=== PATIENT | female | born 1980 | race Caucasian/White ===

== ENCOUNTER → 2021-08-19 07:57 | Outpatient (CLI) | payer OTHER, SELFPAY ==
[2021-08-19 09:31] LABS: COVID19 -Nasal RAPID Negative (Negative)
== END ==
PROVIDERS: PCP Family Medicine; Referring Provider Specialist; Visit Provider Specialist
DX: Z01.812 Encounter for preprocedural laboratory examination (principal); Z20.822 Contact with and (suspected) exposure to COVID-19
CPT/HCPCS: 87635

== ENCOUNTER 2021-08-19 08:06 | Day surgery (SDC) | payer OTHER, SELFPAY ==
[2021-08-14 15:23] VITALS: BMI 31.1
[2021-08-19] VITALS (16 sets, daily range): BP systolic 89–122; BP diastolic 56–84; PULSE 95–116; RESP 12–16; TEMP 36.2–36.8; O2SAT 96–100; BMI 31.1
--- NOTE | 2021-08-19 | PATH_ITS ---
[facility] Accession Number: [id number] . 01 Material submitted: . uterus - BILATERAL FALLOPIAN TUBES, LEFT OVARY, UTERUS, AND CERVIX . 02 Diagnosis: A. Uterus, Cervix, Bilateral Fallopian Tubes and Left Ovary, Hysterectomy, Bilateral Salpingectomy, and Left Oophorectomy: Myometrium with leiomyomas (up to 5 cm). Late secretory phase endometrium. Cervix with parakeratosis, consistent with prolapse-type changes and benign nabothian cysts. Bilateral fallopian tubes with focal hydrosalpinx. Left ovary with numerous benign physiologic cysts. Negative for ovarian borderline tumors, dysplasia or malignancy. MRV 08/25/2021 1732 Local . 02 Electronically signed: . Gris Oro MD, Pathologist NPI- [id number] . 01 Gross description: . The specimen is received in formalin, labeled uterus, cervix, bilateral tubes and left ovary and consists of a 325-gram morcellated uterus, cervix, bilateral fallopian tubes and ovary measuring 16.0 x 15.0 x 5.0 cm in aggregate. The serosa is reyes-pink and smooth. The reyes-pink wrinkled, focally hemorrhagic ectocervix measures 4.2 x 3.8 cm and there is a 0.6 x 0.2 cm os. Sectioning reveals a red-brown endometrium measuring 0.1 cm in thickness. The myometrium is reyes-pink and trabeculated with multiple reyes-white whorled leiomyomata and leiomyomata fragments ranging from 1.0-5.0 cm with no areas of hemorrhage, necrosis or cystic degeneration. Also received are two detached fallopian tubes measuring 5.0 cm in length by 1.2 cm in diameter and 6.5 cm in length by 0.9 cm in diameter. The serosa is pink-purple and smooth, and there are multiple paratubal cysts ranging from 0.1-0.3 cm. Sectioning reveals a reyes-pink mucosa and a stellate lumen measuring 0.4 cm in diameter. Additionally received is a detached ovary weighing 13 grams and measuring 4.5 x 2.8 x 1.5 cm. The external surface is reyes and smooth to cerebriform with fibrinous adhesions. The ovary is inked blue and sectioned to reveal multiple smooth walled serous-filled cysts ranging from 0.2-1.0 cm. No papillary excrescences are identified. . A1-A2: Cervix. A3-A4: Lime Supervisor uterus. A5-A7: Lime Supervisor leiomyomata. A8-A9: Fallopian tubes, it sales representative cross sections and bisected fimbria. A10-A12: Lime Supervisor ovary. (EA:[id number]) A13-A14: Lime Supervisor endometrium additional /MRV 08/25/2021 1732 Local . 02 Pathologist provided ICD-10: N94.10, D25.9, N81.4 . 02 CPT . 315899 Performed at: [facility] [address] [id number] MD Ronal Block MD Phone: [phone] Performed at: 02 [facility] [address] [place] [id number] MD Felicita Bolaños MD Phone: [phone]
--- NOTE | 2021-08-19 09:12 | PM.PREOP ---
Pre-operative Note COVID-19 COVID-19 status: Result pending Result date/Date tested (Pos, Neg/Pending): 08/19/21 Interval Note History & Physical reviewed/Exam performed by Physician: Yes Changes to H&P: No
[2021-08-19] MEDS: SODIUM CHLORIDE 0.9% 1,000 ML 84 ML IV (09:29)
[2021-08-19] MEDS: CLINDAMYCIN 900 MG/50 ML PIGGYBACK 50 MG IV (10:05)
[2021-08-19] MEDS: ACETAMINOPHEN IV 1,000 MG/100 ML VIAL 400 MG IV (10:30)
--- NOTE | 2021-08-19 10:39 | SUR.OPER ---
Lithotomy on padded OR bed. [place] Pad Positioner under torso. Head on pillow, arms padded and tucked at sides. Legs secured in padded yellow fins stirrups.
[2021-08-19] MEDS: EPINEPHrine 1 MG/ML 0.15 MG INJ (10:44)
[2021-08-19] MEDS: BUPIVACAINE 0.5% (PF) VIAL 30 ML INJ (10:50)
[2021-08-19] MEDS: LACTATED RINGERS 1,000 ML 100 ML IV ×2 (11:17→15:26)
--- NOTE | 2021-08-19 13:10 | PM.OP.1 ---
Operative Date/Time/Diagnoses Date of procedure: 08/19/21 Time of procedure: 13:10 Pre-op diagnosis: Menorrhagia and symptomatic cystocele with partial uterovaginal prolapse Post-op diagnosis: other (Adhesion of the left ovary to the uterus requiring removal) Procedure & Clinicians Procedure: Laparoscopic-assisted vaginal hysterectomy, left salpingo oophorectomy, right salpingectomy, with anterior repair Same procedure as scheduled: Yes Indications: Menorrhagia with symptomatic cystocele and partial uterovaginal prolapse Surgeon: Odalis Espinal Maintenance And Repair Worker: Felisa Pringle Click Yes if Unassisted: No Anesthesia Type: General Operative Notes Findings: Large fibroid uterus, adhesion of the left ovary to the uterus, normal right ovary, normal fallopian tubes, no obvious internal hernias or endometriosis. Cystocele with uterine prolapse to the hymen. Closure Type: primary Specimen(s): other (Uterus, left ovary, bilateral fallopian tubes) Applied: catheter (Fuentes) and other (Vaginal packing) Estimated Blood Loss (mL): 400 Blood products transfused: none Procedure in detail: Patient was brought to the operating room where she underwent general anesthesia. She was placed in [facility]. A check system was reviewed with the staff in the room. 900 mg of IV clindamycin was in prior to beginning case. Warming was in place. Pulsatile stockings were in place and functional. She was prepped and draped in the usual sterile fashion. A single-tooth tenaculum was placed on the anterior lip of the cervix. The cervix was dilated to #6 Hegar dilator to allow the uterine manipulator to be placed through the cervix into the uterus with the balloon inflated with 3 mL of air. A Fuentes catheter was placed. Area of a prior umbilical incision was injected with lidocaine. An incision was made with the scalpel. The varies needle was placed in the abdomen. Correct placement was noted by withdrawing on the syringe and the having a drop of water fall easily through the syringe into the abdomen. The abdomen was insufflated with CO2. 5 mm trochars were placed in the right and left lower quadrant under direct visualization. There did not appear to be any damage with placement of the trochars. The PK generator was used to cauterize and cut the infundibulopelvic ligament on the left side. Sequential bites were taken down the broad ligament freeing the fallopian tube and ovary. Next sequential bites were taken along the mesosalpinx on the right side allowing freeing of the right fallopian tube. The round ligaments were cauterized and sequential bites taken down the broad ligaments bilaterally. A 12 mm port was placed suprapubically to allow more retraction. Due to the significantly large nature of the uterus decision was made to amputate the uterus. The Zina loop was placed around the uterus and the uterus above the level the bladder was amputated. Bleeding was controlled with the PK. Next the procedure was switched to a vaginal approach. A single-tooth tenaculum was placed on the posterior lip of the cervix and a posterior colpotomy incision was made. The uterosacral ligaments were clamped, cut, and ligated with 0 Vicryl suture which was used throughout the rest the case unless otherwise indicated. The cervix was circumscribed with the scalpel. The bladder pillars were clamped cut and ligated. Using sharp and blunt dissection the bladder was pushed away from the cervix. Sequential bites were taken up the cardinal ligaments with the LigaSure. An anterior colpotomy incision was made and the rest of the attachments were removed. The cervix was removed. Adequate hemostasis noted. The peritoneum was closed with a pursestring suture of 2-0 Vicryl suture. The vaginal cuff was closed from anterior to posterior with [id number] sutures with 0 Vicryl suture. A dilute solution of Marcaine with epi was injected over the cystocele. An incision was made in the vaginal tissue and the dissection was undertaken laterally. Plication sutures over the cystocele were performed with 0 Vicryl suture. Small amount of vaginal tissue was removed and the incision closed with 2 0 Vicryl suture in a running stitch. The abdomen was reinsufflated and adequate hemostasis was obtained with the PK. An area of oozing was treated with Surgicel. The Endo-Catch bag was placed into the abdomen and the uterus with the left ovary attached was placed in the bag. The bag was brought up through the incision. The fascia incision was enlarged to allow the Albert to be placed. The uterus was hand morcellated without spill into the abdomen. The fascial layer was closed with 0 Vicryl suture. The adipose layer reapproximated with 3-0 Vicryl suture. The CO2 was allowed to escape from the abdomen and the trochars were removed. The skin was closed with 4-0 Monocryl. Counts of instruments and sponges were correct. Patient went to recovery room in good condition. Complications: none Post-operative Condition: stable Disposition: Acute Care Plan for aftercare: Routine post vaginal hysterectomy and anterior.
--- NOTE | 2021-08-19 13:31 | SUR.PHASEI ---
Received to PACU after general anesthesia. Airway patent, self maintained. Report received from LAURA Mercado and Dr Angel.
[2021-08-19] MEDS: OXYCODONE IR 5 MG TABLET PO ×3 (13:45→21:16)
[2021-08-19] MEDS: hydrOXYzine 50 MG/ML INJ 25 MG IM (13:45)
[2021-08-19] MEDS: BENZOCAINE/MENTHOL 1 LOZ PKT 1 EACH PO (13:49)
[2021-08-19] MEDS: KETOROLAC 30 MG/ML VIAL IV ×2 (15:26→19:58)
--- NOTE | 2021-08-19 15:46 | PC.NURSE ---
Addendum entered by Velma Laguna R.N. 08/19/21 19:10: Pt has been comfortable with PO Oxycodone, Ice pack to ABD. Using light appropriately. Original Note: Admit Pt arrived to room 224 @ 1410, alert, denies pain. Ice pack to lower abd. Fuentes is patent clear yellow urine to tubing. VSS, HR slightly tachy, baseline per Pt. Tolerating PO meds and snacks. Oriented to room and POC.
[2021-08-19] MEDS: DOCUSATE 100 MG CAPSULE 200 MG PO (21:16)
[2021-08-19] MEDS: VENLAFAXINE ER 75 MG CAP 150 MG PO (21:16)
[2021-08-20] VITALS: BP 99/76; PULSE 109; RESP 16; TEMP 36.6; O2SAT 96
[2021-08-20] MEDS: PROMETHAZINE 25 MG TABLET 12.5 MG PO (00:44)
[2021-08-20] MEDS: LACTATED RINGERS 1,000 ML 100 ML IV (01:23)
[2021-08-20] MEDS: KETOROLAC 30 MG/ML VIAL IV ×2 (01:28→07:45)
[2021-08-20 04:00] VITALS: BP 110/82; PULSE 110; RESP 16; TEMP 36.7; O2SAT 98
[2021-08-20 05:31] LABS: Hematocrit 33.8 % (36-46); Hemoglobin 11.3 g/dL (12.0-16.0); Mean Corpuscular HGB Conc 33.4 % (30-36); Mean Corpuscular Hemoglobin 29.4 PG (26-34); Mean Corpuscular Volume 88.2 fL (80-100); Platelet Count 281 X10^3/uL (150-400); Red Blood Cell Count 3.84 X10^6/uL (4.0-5.2); Red Cell Distribution Width 13.9 % (11.6-14.8); White Blood Cell Count 15.7 X10^3/uL (4.5-11.0)
[2021-08-20 05:32] LABS: Add Manual Diff / Slide Review YES
[2021-08-20 07:01] LABS: Neutrophils Absolute Manual 13659 /uL (3000-5900); Total Cells Counted 100
[2021-08-20 07:02] LABS: RBC Morphology Normal Morphology
--- NOTE | 2021-08-20 07:54 | P.DS_ITS ---
History of Present Illness History of Present Illness Date Patient Seen: 08/20/21 Time Patient Seen: 07:54 Chief complaint: *OPB* Narrative: Patient is status post laparoscopic-assisted vaginal hysterectomy with left salpingo oophorectomy, right salpingectomy and cystocele repair Discharge Providers Provider Discharge Date: 08/20/21 Primary care physician: Solitario Hinkle MD Discharge provider: Odalis Espinal MD Summary Hospital Course Discharge Diagnosis: Partial uterovaginal prolapse, cystocele predominant. Menorrhagia from large uterine fibroids, adhesions of the left ovary to the uterus. Hospital Course: Patient underwent a laparoscopic-assisted vaginal hysterectomy with left salpingo oophorectomy, right salpingectomy, anterior repair on 08/19/2021. Her Fuentes catheter and vaginal packing was removed this morning. She is not nauseated. She did have a severe headache last night but it is better today. Patient passed her bladder trial with less than 10 cc postvoid residual. She is ambulatory. Status at Discharge Cognitive/behavioral status at discharge: oriented Time Spent with Patient Time spent: Less than 30 minutes Exam Vital Signs (past 8 hours): - 08/20/21 00:00 08/20/21 04:00 Temperature 97.8 F 98.0 F Pulse Rate 109 H 110 H Respiratory Rate 16 16 Blood Pressure 99/76 110/82 Pulse Oximetry 96 98 Oxygen Delivery Method Room Air Oxygen Flow Rate 0 Narrative Exam Narrative: Patient's abdomen is soft, nontender, mild bloating. Dressings are clean, dry, intact. Vaginal packing had minimal blood on it. Extremities without edema and nontender. Objective Labs Result Diagrams: 08/20/21 04:30 Labs: Laboratory Results - last 24 hr 08/20/21 04:30 WBC 15.7 H RBC 3.84 L Hgb 11.3 L Hct 33.8 L MCV 88.2 MCH 29.4 MCHC 33.4 RDW 13.9 Plt Count 281 Neut % (Auto) Not Reportable Lymph % (Auto) Not Reportable [place] % (Auto) Not Reportable Eos % (Auto) Not Reportable Baso % (Auto) Not Reportable Lymph # (Auto) Not Reportable [place] # (Auto) Not Reportable Baso # (Auto) Not Reportable Total Counted 100 Seg Neutrophils % 83.0 H Band Neutrophils % 4.0 Lymphocytes % (Manual) 10.0 L Monocytes % (Manual) 3.0 Neutrophils # (Manual) 79603 H RBC Morphology Normal morphology PFSH Social History household members: spouse and children Smoking Status: Never smoker alcohol intake: current Discharge Assessment & Plan Assessment and Plan Assessment: Status post laparoscopic-assisted vaginal hysterectomy with left salpingo oophorectomy and right salpingectomy with cystocele repaired doing well. Plan of Treatment: Home to be followed up in 2 weeks. Routine precautions reviewed. Discharge Plan Discharge Plan Patient Disposition: Home Provider Discharge Comment: After postvoid residual Discharge orders & Medications Discharge Orders: Discharge (Order); Ordered 08/20/21 Ordered By: Odalis Espinal Prescriptions: Continued venlafaxine [Effexor XR] 150 mg capsule,extended release 24hr 150 mg PO BEDTIME RF: 0 alprazolam 1 mg tablet 1 mg PO BID PRN (Reason: anxiety) Qty: 10 RF: 0 oxycodone 5 mg tablet 5 mg PO Q4H PRN (Reason: pain) Qty: 20 RF: 0 promethazine 12.5 mg tablet 12.5 mg PO Q6H PRN (Reason: nausea and vomiting) Qty: 10 RF: 0 Follow up/Referrals: Odalis Espinal MD [Physician] - As previously scheduled (09/02/2021 at 9:30 a.m.) Solitario Hinkle MD [Primary Care Provider] - Diet/Activity/Treatments Diet: Regular Activity: Nothing in vagina or lifting over 20 lb for 6 weeks Skin/Wound/Dressing Care Report to your healthcare provider any signs of infection, such as:: chills, fever, increased pain and unusual redness Dressing: May remove Band-Aids today. Leave Steri-Strips in place. Can get wet just pat dry. Can remove in 1 week Visit Report/Discharge Packet Instructions: DI for Hysterectomy, DI for Laparoscopy, Oxycodone Discharge Data Primary Care Provider: Solitario Hinkle Attending Provider: Odalis Espinal
[2021-08-20 08:15] VITALS: BP 107/80; PULSE 108; RESP 16; TEMP 37.1; O2SAT 97
[2021-08-20] MEDS: DOCUSATE 100 MG CAPSULE 200 MG PO (08:29)
--- NOTE | 2021-08-20 08:43 | CM.DANOTE ---
DCP: Case received, EMR reviewed and met with patient. Introduced self and role. Was able to obtain information regarding patient's baseline activity status. DCP assessment completed with information currently available. Patient is a 40 year old female who admitted yesterday morning to the care of the SOLAR TECHNICIAN team. PCP: Dr. Hinkle, and [facility] clinic. Payer: confirmed: [employer]. Patient came to the hospital via private vehicle for a surgical procedure. She had laprascopic assisted vaginal hysterectomy. Met with patient in her room. She was sitting up in bed, alert and oriented, peasant. Confirmed that patient resides in [place]. Her is a tugboat pilot at [employer] and he is on deployment. She is independent at her baseline. She has children over 18, that can assist her if needed, and her mother will be staying with her as well. P: Patient is discharging home today. Adilia Bartlett RN/Early Childhood Associate Discharge Planning/Care Management CM Discharge Assessment Start: 08/20/21 08:41 Freq: Status: Active Protocol: Document 08/20/21 08:41 (Rec: 08/20/21 08:42 [id number]) Discharge Planning Assessment Assigned Software Controls Engineer Adilia Bartlett RN/Early Childhood Associate Advance Directives? No History Provided By Patient,Medical Record Prior Living Arrangements House Household Members spouse,children Type of transporation used prior to Drives own vehicle admit Independent with ADL's Yes Is patient alert and oriented? Yes Caregiver for Another No: She has children over 18 Barriers to Discharge No Discharge Plan Home Transportation Arrangement Mother Referrals Initiated None needed Whiteboard Updated in Patient Room with Yes name and ext. # of Software Controls Engineer Review Status In Process Next Review Type Continued Stay Review Pre-Anesthesia Assessment Start: 08/14/21 15:23 Freq: Status: Active Protocol: Document 08/14/21 15:23 CAB (Rec: 08/14/21 15:27 CAB [id number]) Pre-Anesthesia Assessment Patient Information Reviewed Via Chart Review Comment COVID screen @ 08/19/21 Primary Care Provider Solitario Hinkle Seen Specialist in Last 12 Months Yes Specialist Seen Heel Scourer Primary Language Latvian Photo Cartographer Required No Height 5 ft 5 in Weight 187 lb Body Mass Index (BMI) 31.1 Barriers to Learning None Anesthesia Review Requested No Money Position Officer No Smoking Status Never smoker History of Falling (Recent or History of No ) Patient is completely paralyzed or No completely immobile Mental Status Oriented to own ability Hx Sleep Apnea No Currently Taking a Beta Herminio No Anti-Coagulant Therapy No Has a Business Agent No Cardiac Testing No Hx Pacemaker/ICD No Pacemaker Rep Required? No Cardiac Clearance Received Not Applicable Bladder Pattern Incontinent, Stress,Nocturia Urinary Catheter Present No Hx Urinary Self Catheterization No Diabetes No Patient No Lactating No Comment LMP 08/07/21 Marital Status Lives With spouse,children Patient Discharge Plan Description Return Home
[2021-08-20] MEDS: INFLUENZA VACCINE QIV 0.5 ML SYRINGE IM (08:55)
[2021-08-20] MEDS: OXYCODONE IR 5 MG TABLET PO (10:49)
--- NOTE | 2021-08-20 11:11 | PC.NURSE ---
Provided d/c education verbal and written. Reviewed medication regimen, post op restrictions, s/s of wound infection, when to seek emergency medical treatment. Reviewed f/u appt. Pt and pt's mom present for teaching and both verbalize understanding. All belongings are gathered and sent with pt upon dc. Pt escorted by CRITICAL CARE UNIT NURSE to POV via w/c in no distress.
== END 2021-08-20 11:06 | disposition home or self-care (01) ==
LOC: OR 08:09 → AC 08:10
PROVIDERS: PCP Family Medicine; Referring Provider Specialist; Visit Provider Specialist
PROC: 0UT9FZZ Resection of Uterus, Via Natural or Artificial Opening With Percutaneous Endoscopic Assistance (ICD-10-PCS; CPT 58554; principal; 2021-08-19 09:45)
PROC: (CPT 58554; 2021-08-19 09:45)
DX: D25.9 Leiomyoma of uterus, unspecified (principal); N81.2 Incomplete uterovaginal prolapse; Z23 Encounter for immunization; Z20.822 Contact with and (suspected) exposure to COVID-19; F32.9 Major depressive disorder, single episode, unspecified; F41.9 Anxiety disorder, unspecified; N73.6 Female pelvic peritoneal adhesions (postinfective); N88.8 Other specified noninflammatory disorders of cervix uteri; N70.11 Chronic salpingitis; N83.292 Other ovarian cyst, left side
CPT/HCPCS: 58554; 57240; 36415; 85007; 85025; 87635; 90471; 90656; 94760; J0131; J0171; J1100; J1885; J2250; J2405; J2704; J3010; J3410; Q2038

== ENCOUNTER 2021-08-21 15:57 | Emergency (ER) | payer OTHER, SELFPAY ==
[2021-08-19 08:25] VITALS: BMI 31.1
[2021-08-21] VITALS (12 sets, daily range): BP systolic 94–124; BP diastolic 59–76; PULSE 103–140; RESP 16–24; TEMP 36.8–39.6; O2SAT 94–98; BMI 30.7
--- NOTE | 2021-08-21 16:08 | DI.RAD.S_ITS ---
PROCEDURE: XR CHEST 1V INDICATIONS: fever TECHNIQUE: One view of the chest was acquired. COMPARISON: None. FINDINGS: Surgical changes and devices: None. Lungs and pleura: Lungs are clear. No pleural effusions or pneumothorax. Mediastinum: Mediastinal contours appear normal. Heart size is normal. Bones and chest wall: No suspicious bony lesions. Overlying soft tissues appear unremarkable. IMPRESSION: No acute cardiopulmonary pathology. Dictated by: Ivan Elise M.D. on 08/21/2021 at 16:49 Approved by: Ivan Elise M.D. on 08/21/2021 at 16:49
--- NOTE | 2021-08-21 16:37 | PC.NURSE ---
reports new left flank pain, reports body aches throughout the day. Surgery on wednesday, lower abd pain, minimal relief with oxycodone. Has been taking gas x and stool softner
--- NOTE | 2021-08-21 16:46 | ED_ITS ---
HPI - Fever General Chief Complaint: Fever Stated Complaint: fever, s/p surgical hyst Time Seen by Provider: 08/21/21 16:08 Source: patient Mode of arrival: Ambulatory History of Present Illness HPI Narrative: Patient is a 40-year-old female is status post hysterectomy for 5 8 day number to. Presenting today with fever and tachycardia along with left lower quadrant pain. She was discharged yesterday, who said she was doing well she has been a bit sore but nothing out of the ordinary. However she suddenly spiked fever this afternoon if she is febrile 103 in the ED with heart rate in the 130s. She apparently has seen Cardiology for previous tachycardia of her normal heart rate is in the 100s. She denies any cough chest pain painful or frequent urination. She says she has not yet had a bowel movement but has been taking oxycodone. Related Data Home Medications Medication Instructions Recorded Confirmed venlafaxine 150 mg 150 mg PO BEDTIME 06/13/21 08/19/21 capsule,extended release 24 hr (Effexor XR) Previous Rx's Medication Instructions Recorded alprazolam 1 mg tablet 1 mg PO BID PRN #10 tab 08/13/21 oxycodone 5 mg tablet 5 mg PO Q4H PRN #20 tab 08/13/21 promethazine 12.5 mg tablet 12.5 mg PO Q6H PRN #10 tab 08/13/21 sulfamethoxazole 800 1 tab PO BID 7 Days #14 tab 08/21/21 mg-trimethoprim 160 mg tablet (Bactrim DS) Allergies Allergy/AdvReac Type Severity Reaction Status Date / Time amoxicillin [From Augmentin] Allergy Mild hives Verified 08/21/21 16:18 clavulanic acid Allergy Mild hives Verified 08/21/21 16:18 [From Augmentin] ondansetron [From Zofran] Allergy Unknown Verified 08/21/21 16:18 Review of Systems Review of Systems ROS Unobtainable: All systems reviewed & are unremarkable except as noted in HPI and below Constitutional Constitutional: Reports as per HPI, Denies fatigue and Reports fever(s) ENT Ears, Nose, Mouth, and Throat: Denies vertigo and Denies dizziness Cardiovascular Cardiovascular: Denies chest pain at rest, Denies syncope, Reports rapid heart rate, Denies irregular heart rhythm, Denies dyspnea and Denies dyspnea on exertion Respiratory Respiratory: Denies cough, Denies dyspnea and Denies dyspnea on exertion Gastrointestinal Gastrointestinal: Reports abdominal pain, Reports constipation, Reports nausea and Denies vomiting Genitourinary Genitourinary: Denies urinary hesitancy and Denies urinary urgency Musculoskeletal Musculoskeletal: Denies back pain and Reports myalgias Integumentary/Breasts Skin/Breast: Denies rash Neurologic Neurologic: Denies vertigo, Denies dizziness and Denies syncope Endocrine Endocrine: Denies fatigue and Denies flushing Patient History Social History household members: spouse and children Smoking Status: Never smoker alcohol intake: current Smoking Status: Never smoker alcohol intake frequency: holidays/special occasions only Substance Use Type: does not use Exam Initial Vital Signs Initial Vital Signs: Vital Signs Pulse Rate 135 H 08/21/21 16:11 Respiratory Rate 22 08/21/21 16:11 Pulse Oximetry 94 08/21/21 16:11 GENERAL: Alert 40-year-old female overall appears well HEENT: Head atraumatic,EOMI, pupils reactive, face symmetric, moist mucous membranes CARDIOVASCULAR: Tachycardic regular no murmur RESPIRATORY: Breath sounds equal bilaterally, no wheezes rales or rhonchi. ABDOMEN: Soft, slightly distended tender left lower quadrant some hardening on left side versus right side incision sites all look clean without sign of infec tion : No CVA tenderness EXTREMITIES: Normal range of motion, no clubbing or edema. Neurovascularly intact NEUROLOGICAL: Alert and oriented x4.Normal gait and speech. SKIN: Warm, dry, no laceration, no petechiae, no rashes or lesions. Course Orders Ordered: ED Orders 08/21/21 16:08 XR chest 1V Stat EKG-12 Lead Stat 08/21/21 16:32 Complete Blood Count AUTO DIFF Stat Comprehensive Metabolic Panel Stat Lactate (Lactic Acid) Stat Procalcitonin Stat Troponin & CK Cardiac Panel Stat 08/21/21 16:47 CT abdomen pelvis w con Stat 08/21/21 16:52 COVID19 - ADMIT (METAL TANK ERECTOR swab/PCR) Stat 08/21/21 17:05 Urinalysis and Microscopic Stat Urine Culture Stat 08/21/21 17:08 Blood Culture Stat Discontinued Medications Acetaminophen (Acetaminophen 325 Mg Tablet) 975 mg PO NOW ONE Stop: 08/21/21 16:45 Last Admin: 08/21/21 16:50 Dose: 975 mg Documented by: KEHINDE Ceftriaxone Sodium 1,000 mg/ (Sodium Chloride) 100 mls @ 200 mls/hr IV NOW ONE Stop: 08/21/21 17:43 Last Infusion: 08/21/21 19:10 Dose: 0 mls/hr Documented by: Admin: 08/21/21 18:04 Dose: 200 mls/hr Documented by: KEHINDE Sodium Chloride (Normal Saline 0.9%) 1,000 mls @ 1,000 mls/hr IV BOLUS ONE Stop: 08/21/21 19:35 Last Admin: 08/21/21 19:09 Dose: 1,000 mls/hr Documented by: VEL Potassium Chloride (Potassium Chloride 20 Meq Tab) 40 meq PO NOW ONE Stop: 08/21/21 18:36 Last Admin: 08/21/21 19:08 Dose: 40 meq Documented by: VEL Vital Signs Vital signs: Vital Signs - 8 hr 08/21/21 16:11 08/21/21 16:14 08/21/21 16:15 Temperature 103.2 F H 103.2 F H Pulse Rate 135 H 140 H 133 H Respiratory Rate 22 20 16 Blood Pressure 124/76 124/76 Pulse Oximetry 94 98 94 08/21/21 16:30 08/21/21 17:02 08/21/21 17:30 Temperature Pulse Rate 135 H 130 H 126 H Respiratory Rate 24 22 Blood Pressure Pulse Oximetry 95 96 08/21/21 18:00 08/21/21 18:09 08/21/21 18:11 Temperature 98.8 F 98.8 F Pulse Rate 120 H Respiratory Rate 24 Blood Pressure 105/69 Pulse Oximetry 95 08/21/21 19:12 Temperature 98.2 F Pulse Rate 116 H Respiratory Rate 16 Blood Pressure 97/63 Pulse Oximetry 98 MDM - Fever Lab Data Result diagrams: 08/21/21 16:32 08/21/21 16:32 Labs: Lab Results 08/21/21 08/21/21 08/21/21 Range/Units 16:32 16:32 16:32 WBC 13.0 H (4.5-11.0) X10^3/uL RBC 3.52 L (4.0-5.2) X10^6/uL Hgb 10.4 L (12.0-16.0) g/dL Hct 30.7 L (36-46) % MCV 87.0 (80-100) fL MCH 29.4 (26-34) PG MCHC 33.8 (30-36) % RDW 14.0 (11.6-14.8) % Plt Count 222 (150-400) X10^3/uL Neut % (Auto) 79.6 H (50-75) % Lymph % (Auto) 15.4 L (25-40) % [place] % (Auto) 4.4 (3-14) % Eos % (Auto) 0.2 L (2-4) % Baso % (Auto) 0.4 (0-2) % Neut # (Auto) 61384 H (3393-8139) /uL Lymph # (Auto) 2000 (1055-0844) /uL [place] # (Auto) 600 (0-900) /uL Eos # (Auto) 0 (0-450) /uL Baso # (Auto) 0 (0-100) /uL Sodium 136 L (137-145) mmol/L Potassium 2.9 L (3.4-5.1) mmol/L Chloride 101 (98-107) mmol/L Carbon Dioxide 27 (22-32) mmol/L BUN 7 (7-17) mg/dL Creatinine 0.73 (0.52-1.04) mg/dL Estimated GFR > 60.0 (>60) mL/min BUN/Creatinine Ratio 9.6 (6-22) Glucose 123 H (70-100) mg/dL Lactate 0.6 L (0.7-2.1) mmol/L Calcium 8.5 (8.4-10.2) mg/dL Total Bilirubin 0.8 (0.2-1.3) mg/dL AST 29 (14-36) IU/L ALT 18 (<35) IU/L Alkaline Phosphatase 60 (38-126) U/L Total Creatine Kinase 89 (30-135) U/L CK-MB (CK-2) TNP CK-MB (CK-2) Rel Index TNP Troponin I < 0.012 (0.01-0.034) ng/mL Total Protein 6.7 (6.3-8.2) g/dL Albumin 3.7 (3.5-5.0) g/dL Globulin 3.0 (1.7-4.1) g/dL Albumin/Globulin Ratio 1.2 (1.0-2.8) Procalcitonin 0.11 (<0.5) ng/mL Urine Color Urine Appearance Urine pH (4.5-8.0) Ur Specific [place] (1.000-1.035) Urine Protein (Negative) Urine Glucose (UA) (Negative) g/dL Urine Ketones (NEGATIVE) Urine Occult Blood (Negative) Urine Nitrate (Negative) Urine Bilirubin (NEGATIVE) Urine Urobilinogen (0.2) E.U./dL Ur Leukocyte Esterase (NEGATIVE) Urine RBC (0-5/HPF) Urine WBC (0-5/HPF) Ur Squamous Epith Cells (0-5/HPF) Ur Transition Epith Cell (0-5/HPF) Urine Bacteria (None) Ur Culture Indicated? SARS-CoV-2 (PCR) 08/21/21 08/21/21 08/21/21 Range/Units 16:32 16:52 17:05 WBC (4.5-11.0) X10^3/uL RBC (4.0-5.2) X10^6/uL Hgb (12.0-16.0) g/dL Hct (36-46) % MCV (80-100) fL MCH (26-34) PG MCHC (30-36) % RDW (11.6-14.8) % Plt Count (150-400) X10^3/uL Neut % (Auto) (50-75) % Lymph % (Auto) (25-40) % [place] % (Auto) (3-14) % Eos % (Auto) (2-4) % Baso % (Auto) (0-2) % Neut # (Auto) (2704-7885) /uL Lymph # (Auto) (1180-7402) /uL [place] # (Auto) (0-900) /uL Eos # (Auto) (0-450) /uL Baso # (Auto) (0-100) /uL Sodium (137-145) mmol/L Potassium (3.4-5.1) mmol/L Chloride (98-107) mmol/L Carbon Dioxide (22-32) mmol/L BUN (7-17) mg/dL Creatinine (0.52-1.04) mg/dL Estimated GFR (>60) mL/min BUN/Creatinine Ratio (6-22) Glucose (70-100) mg/dL Lactate (0.7-2.1) mmol/L Calcium (8.4-10.2) mg/dL Total Bilirubin (0.2-1.3) mg/dL AST (14-36) IU/L ALT (<35) IU/L Alkaline Phosphatase (38-126) U/L Total Creatine Kinase (30-135) U/L CK-MB (CK-2) CK-MB (CK-2) Rel Index Troponin I (0.01-0.034) ng/mL Total Protein (6.3-8.2) g/dL Albumin (3.5-5.0) g/dL Globulin (1.7-4.1) g/dL Albumin/Globulin Ratio (1.0-2.8) Procalcitonin (<0.5) ng/mL Urine Color Yellow Urine Appearance Sl cloudy Urine pH 6.5 (4.5-8.0) Ur Specific [place] <=1.005 (1.000-1.035) Urine Protein Negative (Negative) Urine Glucose (UA) Negative (Negative) g/dL Urine Ketones Negative (NEGATIVE) Urine Occult Blood 3+ H (Negative) Urine Nitrate Positive H (Negative) Urine Bilirubin Negative (NEGATIVE) Urine Urobilinogen 0.2 (0.2) E.U./dL Ur Leukocyte Esterase 2+ H (NEGATIVE) Urine RBC 5-10/hpf H (0-5/HPF) Urine WBC 30-100/hpf H (0-5/HPF) Ur Squamous Epith Cells 1-5 /hpf (0-5/HPF) Ur Transition Epith Cell 1-5/hpf (0-5/HPF) Urine Bacteria Many (>30) H (None) Ur Culture Indicated? Specimen cultured SARS-CoV-2 (PCR) Cancelled Negative Imaging Data CT scan - abdomen/pelvis: Radiologist's Impression: PROCEDURE:? CT ABDOMEN PELVIS W CON ? INDICATIONS:? left sided pain, fever recent hysterectomy ? TECHNIQUE:? After the administration of intravenous contrast, axial sections acquired from the lung bases to the pubic symphysis.? Coronal and sagittal reformats were performed.? For radiation dose reduction, the following was used:? automated exposure control, adjustment of mA and/or kV according to patient size.? ? COMPARISON:? None. ? FINDINGS: ? Lower thorax: The lung bases are clear.? Heart size normal.? No hiatal hernia. ? Liver:? Normal in size and attenuation. No contour deformity present. ? Biliary system:? No calcified cholelithiasis or pericholecystic inflammation. No intra or extrahepatic bile duct dilatation. ? Pancreas:? Unremarkable without mass or inflammation evident. ? Spleen:? Normal in size and density. ? Adrenals:? Normal morphology and density. ? Reproductive system:? Hysterectomy.? ? Urinary system:? Normal renal size and attenuation. No renal calculi, hydron ephrosis, or solid mass present.? Urinary bladder unremarkable. ? Gastrointestinal system:? The bowel is unremarkable without evidence of bowel obstruction or inflammation. The stomach appears unremarkable.? Moderate fecal debris noted in the right colon ? Appendix:? No findings to suggest acute appendicitis. ? Peritoneal spaces:? There is small amount of free fluid in the pelvis with postprocedural stippled air.? No evidence of organized abscess.? Small amount of stippled pneumocephalus noted adjacent to the ventral abdominal wall as well, within expected limits. ? Vasculature:? The IVC, aorta and iliac vasculature are unremarkable. ? Abdominal wall:? Abdominal wall intact without evidence of ventral or inguinal hernias.? Postprocedural stippled subcutaneous air noted in the ventral abdominal wall. ? Musculoskeletal:? Normal bone mineralization.? No acute fractures.? ? IMPRESSION: ? 1. Mild free fluid and postprocedural air in the pelvis without evidence of organized abscess.? Consider short-term follow-up CT if clinical concern persists. ? 2. Additional stippled postprocedural pneumoperitoneum and subcutaneous air present as well. ? 3. Moderate fecal debris in the right colon. ? Approved by: Elijah Ramesh M.D. on 08/21/2021 at 16:46? ECG Data Attestation: I personally reviewed and interpreted this ECG as follows: Prior ECG tracings: not available for review Interpretation: Sinus tachycardia rate 136 p.r. interval 96 QRS 82 QTC 574 definitely prolonged. No priors to compare. Sinus tachycardia rate 108 MN interval [address] changes MDM Narrative Medical decision making narrative: Patient symptoms initially concerning for her sepsis febrile tachycardia with recent procedure. She is mildly tender abdomen. Fortunately CT does not show any abscess however urine is positive for UTI. He has mild leukocytosis but is actually improved from previous. 1824 Dr. Espinal obtain patient's symptoms test results agrees with outpatient follow-up Patient's heart rate has improved, EKG continues to show prolonged QT. Recommend that she of for weight QT prolongation medication. Discharge Plan Departure Patient Disposition: Home Clinical Impression: Prolonged Q-T interval on ECG UTI (urinary tract infection) Qualifiers: Urinary tract infection type: acute cystitis Hematuria presence: without hem aturia Qualified Code(s): N30.00 - Acute cystitis without hematuria Instructions: DI for Urinary Tract Infection (UTI) Activity Restrictions/Additional Instructions: *You have been diagnosed with UTI and prolonged QT *What to do: At this time her found to have a bladder infection. This is likely causing her fever. You will need to take antibiotics and follow closely with OBGYN You were found to have something on your EKG called prolonged QT. Many medica tions including venlafaxine CT affect this. Please ask your provider if the medications you are on cause this. -avoid Zofran/odancetron, and fluoroquinolones *Continue to take medications as directed Bactrim 1 tablet twice a day for 1 week-> SENT TO [facility] PLEASE ASK YOUR PRIMARY CARE PROVIDER DIFFERENT MEDICATION FOR VENLAFAXINE *Follow up with your primary care provider in 2-3 days *Return to ER if you should have PERSISTENT FEVER, INCREASED HEART RATE, CHEST PAIN OR any new, worsening or concerning symptoms Prescriptions: New sulfamethoxazole-trimethoprim [Bactrim DS] 800-160 mg tablet 1 tab PO BID 7 Days Qty: 14 RF: 0 No Action venlafaxine [Effexor XR] 150 mg capsule,extended release 24hr 150 mg PO BEDTIME RF: 0 alprazolam 1 mg tablet 1 mg PO BID PRN (Reason: anxiety) Qty: 10 RF: 0 oxycodone 5 mg tablet 5 mg PO Q4H PRN (Reason: pain) Qty: 20 RF: 0 promethazine 12.5 mg tablet 12.5 mg PO Q6H PRN (Reason: nausea and vomiting) Qty: 10 RF: 0 Referrals: Solitario Hinkle MD [Primary Care Provider] -
--- NOTE | 2021-08-21 16:47 | DI.CT.S_ITS ---
PROCEDURE: CT ABDOMEN PELVIS W CON INDICATIONS: left sided pain, fever recent hysterectomy TECHNIQUE: After the administration of intravenous contrast, axial sections acquired from the lung bases to the pubic symphysis. Coronal and sagittal reformats were performed. For radiation dose reduction, the following was used: automated exposure control, adjustment of mA and/or kV according to patient size. COMPARISON: None. FINDINGS: Lower thorax: The lung bases are clear. Heart size normal. No hiatal hernia. Liver: Normal in size and attenuation. No contour deformity present. Biliary system: No calcified cholelithiasis or pericholecystic inflammation. No intra or extrahepatic bile duct dilatation. Pancreas: Unremarkable without mass or inflammation evident. Spleen: Normal in size and density. Adrenals: Normal morphology and density. Reproductive system: Hysterectomy. Urinary system: Normal renal size and attenuation. No renal calculi, hydronephrosis, or solid mass present. Urinary bladder unremarkable. Gastrointestinal system: The bowel is unremarkable without evidence of bowel obstruction or inflammation. The stomach appears unremarkable. Moderate fecal debris noted in the right colon Appendix: No findings to suggest acute appendicitis. Peritoneal spaces: There is small amount of free fluid in the pelvis with postprocedural stippled air. No evidence of organized abscess. Small amount of stippled pneumocephalus noted adjacent to the ventral abdominal wall as well, within expected limits. Vasculature: The IVC, aorta and iliac vasculature are unremarkable. Abdominal wall: Abdominal wall intact without evidence of ventral or inguinal hernias. Postprocedural stippled subcutaneous air noted in the ventral abdominal wall. Musculoskeletal: Normal bone mineralization. No acute fractures. IMPRESSION: 1. Mild free fluid and postprocedural air in the pelvis without evidence of organized abscess. Consider short-term follow-up CT if clinical concern persists. 2. Additional stippled postprocedural pneumoperitoneum and subcutaneous air present as well. 3. Moderate fecal debris in the right colon. Approved by: Elijah Ramesh M.D. on 08/21/2021 at 16:46
[2021-08-21 16:48] LABS: Add Manual Diff / Slide Review NO; Basophils Absolute Auto 0 /uL (0-100); Basophils Percent Auto 0.4 % (0-2); Eosinophils Absolute Auto 0 /uL (0-450); Eosinophils Percent Auto 0.2 % (2-4); Hematocrit 30.7 % (36-46); Hemoglobin 10.4 g/dL (12.0-16.0); Lymphocytes Absolute Auto 2000 /uL (1100-4500); Lymphocytes Percent Auto 15.4 % (25-40); Mean Corpuscular HGB Conc 33.8 % (30-36); Mean Corpuscular Hemoglobin 29.4 PG (26-34); Monocytes Absolute Auto 600 /uL (0-900); Monocytes Percent Auto 4.4 % (3-14); Neutrophils Absolute Auto 10300 /uL (1500-7000); Neutrophils Percent Auto 79.6 % (50-75); Platelet Count 222 X10^3/uL (150-400); Red Blood Cell Count 3.52 X10^6/uL (4.0-5.2)
[2021-08-21] MEDS: ACETAMINOPHEN 325 MG TABLET 975 MG PO (16:50)
[2021-08-21 16:58] LABS: Alanine Aminotransferase 18 IU/L (<35); Albumin 3.7 g/dL (3.5-5.0); Albumin Globulin Ratio 1.2 (1.0-2.8); Alkaline Phosphatase 60 U/L (38-126); Aspartate Aminotransferase 29 IU/L (14-36); BUN Creatinine Ratio 9.6 (6-22); Bilirubin Total 0.8 mg/dL (0.2-1.3); Blood Urea Nitrogen 7 mg/dL (7-17); Calcium 8.5 mg/dL (8.4-10.2); Carbon Dioxide 27 mmol/L (22-32); Chloride 101 mmol/L (98-107); Creatine Kinase 89 U/L (30-135); Estimated Glomerular Filt Rate > 60.0 mL/min (>60); Glucose 123 mg/dL (70-100); HEMOLYSIS < 15 (0-50); Lactate (Lactic Acid) 0.6 mmol/L (0.7-2.1); Potassium 2.9 mmol/L (3.4-5.1); Sodium 136 mmol/L (137-145); Total Protein 6.7 g/dL (6.3-8.2)
[2021-08-21 17:10] LABS: Troponin I < 0.012 ng/mL (0.01-0.034)
[2021-08-21 17:12] LABS: Appearance Urine UA SL CLOUDY; Bilirubin Urine UA NEGATIVE (NEGATIVE); Color Urine UA YELLOW; Glucose Urine UA NEGATIVE (Negative); Ketones Urine UA NEGATIVE (NEGATIVE); Leukocyte Esterase Urine UA 2+ (NEGATIVE); Nitrite Urine UA POSITIVE (Negative); Occult Blood Urine UA 3+ (Negative); Protein Urine UA NEGATIVE (Negative); Specific Gravity Urine UA <=1.005 (1.000-1.035); Urobilinogen Urine UA 0.2 E.U./dL (0.2); pH Urine UA 6.5 (4.5-8.0)
[2021-08-21 17:14] LABS: Procalcitonin 0.11 ng/mL (<0.5)
[2021-08-21 17:24] LABS: Bacteria Urine Many (>30); Culture Indicated Urine Specimen Cultured; RBC Urine 5-10/HPF (0-5/HPF); Squamous Epithelial Cell Urine 1-5 /HPF (0-5/HPF); Transitional Epi Cells Urine 1-5/HPF (0-5/HPF); WBC Urine 30-100/HPF (0-5/HPF)
[2021-08-21 17:51] LABS: COVID19 - ADMIT (NP swab/PCR) Negative (Negative)
[2021-08-21] MEDS: cefTRIAXone 1,000 MG in SODIUM CHLORIDE 0.9% 100 ML 200 ML IV (18:04)
[2021-08-21] MEDS: POTASSIUM CHLORIDE 20 MEQ TAB 40 MEQ PO (19:08)
[2021-08-21] MEDS: SODIUM CHLORIDE 0.9% 1,000 ML 1000 ML IV (19:09)
--- NOTE | 2021-08-21 19:51 | PC.NURSE ---
Pt denies dizziness
== END 2021-08-21 19:49 | disposition home or self-care (01) ==
PROVIDERS: Emergency Provider Emergency Medicine; PCP Family Medicine; Referring Provider Specialist
DX: N30.00 Acute cystitis without hematuria (principal); R94.31 Abnormal electrocardiogram [ECG] [EKG]; Z20.822 Contact with and (suspected) exposure to COVID-19
CPT/HCPCS: 36415; 71045; 74177; 80053; 81001; 82550; 83605; 84145; 84484; 85025; 87040; 87077; 87086; 87186; 87635; 93005; 93010; 96361; 96365; 99284; C9803; J0696; Q9967

== ENCOUNTER → 2021-11-03 13:31 | Outpatient (CLI) | payer OTHER, SELFPAY ==
[2021-08-19 08:25] VITALS: BMI 31.1
--- NOTE | 2021-11-03 | DI.MRI.S_ITS ---
PROCEDURE: MR CERVICAL SPINE WO CON INDICATIONS: Cervicalgia TECHNIQUE: Noncontrast sagittal T1 spin echo and T2 fast spin echo, sagittal STIR, foraminal oblique sagittal T2 fast spin echo, and axial gradient echo or T2 fast spin echo through the cervical spine. COMPARISON: Outside Film, MR, MR CERVICAL SPINE WITHOUT CONTRAST, 08/28/2016, 9:32 (no written report accompanies the outside images). [facility] [place], CR, XR CERVICAL SPINE WITH OBLIQUES, 10/22/2021, 15:26. FINDINGS: Image quality: This examination is limited by involuntary motion artifact. Alignment and Curvature: There is straightening of the normal cervical lordosis. No focal AP alignment abnormality is seen. Bone Marrow: Marrow demonstrates normal overall signal. Spinal Cord: Visualized spinal cord has normal size and signal. No cerebellar tonsillar herniation. Paraspinous Soft Tissues: No paravertebral masses. Prevertebral soft tissues are normal in thickness. C2-C3: No significant abnormality is seen. C3-C4: The disc height is well-preserved. Loss of disc signal is seen at this level. A mild degree of generalized disc osteophyte complex is seen. Mild facet joint hypertrophy is seen. There is mild left-sided and no significant right-sided neural foraminal narrowing seen. No central canal narrowing is seen. C4-C5: Mild loss of disc height is seen. Loss of disc signal is seen. Moderate generalized disc osteophyte complex is seen. There is at least moderate right-sided and moderate left-sided neural foraminal narrowing seen. There is moderate right-sided and no left-sided neural foraminal narrowing. Mild to moderate central canal narrowing is seen. C5-C6: Mild loss of disc height is seen. Loss of disc signal is seen. Moderate generalized disc osteophyte complex is seen. Moderate facet joint hypertrophy is seen. There is minimal to mild bilateral neural foraminal narrowing. Mild central canal narrowing is seen. C6-C7: Mild loss of disc height is seen. Loss of disc signal is seen. A mild degree of generalized disc osteophyte complex is seen. There is a central disc osteophyte protrusion seen. Mild to moderate facet hypertrophy is seen. There is mild left-sided and no significant right-sided neural foraminal narrowing. Mild central canal narrowing is seen. C7-T1: Mild loss of disc height is seen. Loss of disc signal is seen. Mild to moderate disc osteophyte complex is seen. Mild bilateral neural foraminal narrowing is seen. Minimal central canal narrowing is seen. IMPRESSION: Multiple levels of degenerative change are seen, which are worst inferiorly. The degenerative changes are similar to the outside 2016 examination. Straightening of the normal cervical lordosis is seen, which is commonly observed in patients with muscular spasm. Dictated by: Srinivas Engel M.D. on 11/03/2021 at 13:20 Approved by: Srinivas Engel M.D. on 11/03/2021 at 13:24
== END ==
PROVIDERS: PCP Family Medicine; Referring Provider Physical Medicine & Rehabilitation Pain Medicine; Visit Provider Physical Medicine & Rehabilitation Pain Medicine
DX: M47.812 Spondylosis without myelopathy or radiculopathy, cervical region (principal); M54.2 Cervicalgia
CPT/HCPCS: 72141